=== PATIENT | female | born 1985 | race African-American/Black ===

== ENCOUNTER 2019-04-09 20:20 | Emergency (ER) | payer OTHER ==
[~2019-04-09] VITALS: Ht 154.9 cm; Wt 68.0 kg
[2019-04-09 21:01] LABS: PLATELET COUNT 284 K/uL (152-353)
[2019-04-09 21:12] LABS: POTASSIUM 3.5 mmol/L (3.6-5.2)
[2019-04-09 23:26] VITALS: BP 136/90; TEMP 98.3
== END 2019-04-09 23:26 | disposition home or self-care (01) ==
LOC: ED 20:20
PROVIDERS: Hospitalist
DX: K82.9 Disease of gallbladder, unspecified (principal); K80.20 Calculus of gallbladder without cholecystitis without obstruction
CPT/HCPCS: 36415; 80053; 81000; 81025; 82150; 83690; 85027; 96360; 96375; 99284; J1170; J1885; J2405

== ENCOUNTER 2020-02-08 09:48 | Day surgery (SDC) | payer OTHER ==
[~2020-02-08] VITALS: Ht 33 cm; Wt 0.5 kg
[2020-02-08 10:08] LABS: PLATELET COUNT 234 K/uL (152-353)
[2020-02-08 10:16] LABS: POTASSIUM 3.7 mmol/L (3.6-5.2)
== END 2020-02-08 14:46 | disposition home or self-care (01) ==
LOC: OR 09:48
PROVIDERS: ATTEND Student in an Organized Health Care Education/Training Program
PROC: 0FT44ZZ Resection of Gallbladder, Percutaneous Endoscopic Approach (ICD-10-PCS; principal; 2020-02-08)
PROC: 0WQF4ZZ Repair Abdominal Wall, Percutaneous Endoscopic Approach (ICD-10-PCS; 2020-02-08)
DX: K80.10 Calculus of gallbladder with chronic cholecystitis without obstruction (principal); K43.2 Incisional hernia without obstruction or gangrene
CPT/HCPCS: 80053; 81025; 85027; J0132; J0690; J1100; J1170; J1885; J2250; J2405; J2704; J2710; J2795; J3490